=== PATIENT | male | born 1980 | race Caucasian/White ===

== ENCOUNTER 2016-06-10 12:28 | Day surgery (SDC) | payer OTHER ==
[~2016-06-10 12:28] MED LIST: Buffered Lidocaine 1% SYR 3ML* 3 ML/SYR SYRINGE INTRADERM ONE
[2016-06-10] MEDS ORDERED: Midazolam* 1 MG/ML 2 ML VIAL (2 MG) ONE (13:10)
[2016-06-10] MEDS ORDERED: Propofol* 10 MG/ML 20 ML BTL IV PUSH ONE ×2 (13:10→14:18)
[2016-06-10] MEDS ORDERED: fentaNYL* 50 MCG/ML 2 ML VIAL (100 MCG VIAL) ONE (13:10)
[2016-06-10 15:36] VITALS: BP 116/76
--- NOTE | 2016-06-11 05:57 | PRO ---
DATE OF PROCEDURE: 06/10/16 [facility] PROCEDURE PERFORMED: Colonoscopy with biopsy. MEDICINES USED: Propofol, provided by Anesthesiology. NARRATIVE: Mr. Hancock is a 36-year-old gentleman with a history of adenomatous polyps in the past. His last colonoscopy was about 3 years ago, where 7 polyps were removed, some of which were adenomatous. He is now here for followup and he is asymptomatic. PROCEDURE: After the procedure was discussed with the patient, risks and benefits were outlined, written consent was obtained; the patient was placed in the left lateral decubitus position; and a rectal exam was performed. The rectal exam was normal without any palpable abnormality. At that point, colonoscopy was carried out. A video adult flexible colonoscope was inserted anally and advanced very carefully into the cecum. The cecum was identified by the appendiceal orifice and the ileocecal valve. The quality of the preparation was good. The patient tolerated the procedure well and there were no immediate complications. FINDINGS: Colonoscopy into the cecum was successful. At that level, the colonoscope was slowly withdrawn and careful inspection was carried out. A total of four diminutive polyps were identified and removed; there was one in the ascending colon, one in the sigmoid colon, and two in the rectum. They were all removed with the Jumbo biopsy forceps. No other mucosal abnormality was detected. The submucosal vascular pattern was normal. The rectum was viewed both in the forward view and retroflexed manner and was normal. CONCLUSION: Four small polyps (removed). Otherwise, normal colonoscopy into the cecum. RECOMMENDATION: I will certainly review the biopsy results of these polyps. I would likely recommend a followup colonoscopy in 5 years. Thank you very much, Dr. Lord, for referring this gentleman to me. CC: Charles Lord MD * [id number]/[facility] #: [id number] [facility]OSPITALMartina
== END 2016-06-10 14:30 | disposition home or self-care (01) ==
LOC: OR 12:28
PROVIDERS: ATTEND Internal Medicine Gastroenterology
DX: D12.6 Benign neoplasm of colon, unspecified (principal); D12.8 Benign neoplasm of rectum
CPT/HCPCS: 88305; J2250; J2704; J3010